=== PATIENT | female | born 1970 | race Caucasian/White ===

== ENCOUNTER 2023-04-18 08:45 | Outpatient (RCR) | payer BC, SELFPAY | END 2023-08-16 23:59 | disposition home or self-care (01) | PROVIDERS: PCP Student in an Organized Health Care Education/Training Program; Visit Provider Student in an Organized Health Care Education/Training Program | DX: M25.551 Pain in right hip (principal); Z51.89 Encounter for other specified aftercare | CPT/HCPCS: 97110; 97140; 97161 ==

== ENCOUNTER 2024-04-04 10:02 | Outpatient (CLI) | payer BC, SELFPAY ==
--- NOTE | 2024-04-04 10:15 | CRLHL7_ITS ---
For Patients: As a result of the Century Cures Act, medical imaging exams and procedure reports are released immediately into your electronic medical record. You may view this report before your referring provider. If you have questions, please contact your health care provider. Technique: Double-contrast esophagram performed after the uneventful administration of effervescent crystals and thick barium followed by thin barium. Fluoroscopy time 57 seconds. Indication: Dysphagia Comparison: None. Findings: Esophagus: A few scattered tertiary contractions are present within the distal esophagus. Mild delayed esophageal motility. Small sliding hiatal hernia. No ulcer. No stricture. Gastroesophageal reflux: Mild. Impression: Mild distal reflux esophagitis with small sliding hiatal hernia. Mild decreased esophageal motility small sliding hiatal hernia. Dictated by Cameron Connolly MD @ 04/04/2024 11:17:57 AM (Electronically Signed)
== END 2024-04-04 10:03 | disposition home or self-care (01) ==
LOC: RAD 10:06
PROVIDERS: PCP Student in an Organized Health Care Education/Training Program; Visit Provider Student in an Organized Health Care Education/Training Program
DX: R13.10 Dysphagia, unspecified (principal); K44.9 Diaphragmatic hernia without obstruction or gangrene; K21.00 Gastro-esophageal reflux disease with esophagitis, without bleeding
CPT/HCPCS: 74221